=== PATIENT | male | born 1990 ===

== ENCOUNTER 2023-04-14 02:27 | Emergency (ER) | payer OTHER ==
[~2023-04-14] VITALS: Ht 172.7 cm; Wt 70.4 kg
[2023-04-14] MEDS ORDERED: LACTATED RINGER'S 1,000 ML IV ONE (02:30)
[2023-04-14 02:45] LABS: BASOPHILS 0.6 % (0-2); MCHC 33.5 g/dl (30-36)
[2023-04-14 02:48] LABS: EOSINOPHILS 0.5 % (0-6); HEMATOCRIT 43.4 % (35.0-50.0); HEMOGLOBIN 14.6 g/dL (12.0-18.0); LYMPHOCYTES 24.4 % (24-44); MCH 31.3 (27-36); MCV 93.3 fl (81-99); MONOCYTES 7.8 % (0-12); NEUTROPHILS 66.7 % (39-80); PLATELET COUNT 199 K/uL (140-440); RBC 4.65 M/ul (4.3-5.7); RDW 12.9 (10.5-15.0)
[2023-04-14 02:58] LABS: ALBUMIN 3.8 g/dL (3.4-5.0); ALBUMIN/GLOBULIN RATIO 1.19 (1.1-2.4); ALCOHOL, MEDICAL <3 ng/dL (<3); ALKALINE PHOSPHATASE 50 U/L (46-116); ALT (SGPT) 19 U/L (14-59); ANION GAP 16.1 (7-21); AST (SGOT) 26 U/L (15-37); BILIRUBIN, TOTAL 0.3 ng/dL (0.2-1.0); CALCIUM 8.9 mg/dL (8.5-10.1); CARBON DIOXIDE 25 mmol/L (21-32); CHLORIDE 102 mmol/L (98-107); CREATININE, SERUM 1.19 mg/dL (0.70-1.30); GLOMERULAR FILTRATION RATE,EST 82 mL/min (>60); POTASSIUM 4.1 mmol/L (3.5-5.1); UREA NITROGEN 15 mg/dL (7-18)
[2023-04-14] MEDS ORDERED: MORPHINE SULFATE 4 MG/ML VIAL IV ONE (03:00)
[2023-04-14] MEDS ORDERED: MELOXICAM15 MG PO (03:57)
[2023-04-14] MEDS ORDERED: TRAMADOL HCL 50 MG HOME.PACK PO ONE (04:00)
== END 2023-04-14 04:20 | disposition home or self-care (01) ==
LOC: ED 02:27
PROVIDERS: Family Medicine
DX: S01.01XA Laceration without foreign body of scalp, initial encounter (principal); S16.1XXA Strain of muscle, fascia and tendon at neck level, initial encounter; S29.012A Strain of muscle and tendon of back wall of thorax, initial encounter; W19.XXXA Unspecified fall, initial encounter; R55 Syncope and collapse
CPT/HCPCS: 36415; 70450; 72125; 72128; 80053; 80307; 85025; 96374; 99284-25; A9270; G0480; J2270; J7121